=== PATIENT | female | born 1960 | race American Indian/Alaskan Native ===

== ENCOUNTER 2023-10-24 07:47 | Emergency (ER) | payer SELFPAY ==
[2023-10-24 08:42] LABS: HEMATOCRIT 36.2 % (34.2-48.2); HEMOGLOBIN 12.6 g/dL (11.4-15.5); MEAN CORPUSCULAR HEMOGLOBIN 36.1 pg (23.9-33.9); MEAN CORPUSCULAR HGB CONC 34.9 g/dL (31.9-34.8); MEAN CORPUSCULAR VOLUME 103.4 fL (76.7-100.5); MEAN PLATELET VOLUME 8.9 fL (7.1-12.4); PLATELET COUNT,PLT 395 x10(3)uL (151-488); RED CELL DISTRIBUTION WIDTH 15.2 % (12.3-16.5); WHITE BLOOD CELL COUNT,WBC 17.8 x10-3/uL (3.0-10.3)
[2023-10-24 08:54] LABS: A/G RATIO 0.3; ALANINE AMINOTRANSFERASE,ALT 30 U/L (12-36); ALKALINE PHOSPHATASE 249 IU/L (56-112); ASPARTATE AMNIOTRANSFERASE,AST 103 IU/L (5-25); BILIRUBIN TOTAL 10.4 mg/dL (0.1-1.3); BLOOD UREA NITROGEN,BUN 5 mg/dL (7-18); BUN/CREATININE RATIO 8.3 (9-20); CALCIUM 8.1 mg/dL (8.6-10.2); CARBON DIOXIDE,CO2 29 mmol/L (21-32); CHLORIDE,CL 95 mmol/L (100-110); CREATININE 0.6 mg/dL (0.55-1.02); EST CRCL DRUG DOSING (CG) 84.34 mL/min; ESTIMATED GFR 100 mL/min (>60); GLUCOSE RANDOM 126 mg/dL (80-116); MAGNESIUM 2.5 mg/dL (1.8-2.5); PROTEIN TOTAL,TP 7.2 g/dL (6.0-8.0); SODIUM,NA 131 mmol/L (135-145)
[2023-10-24 08:56] LABS: INR 1.42 (1.00-1.24); PROTHROMBIN TIME 14.3 sec (9.0-11.1)
[2023-10-24 08:58] LABS: PTT,PARTIAL THROMBOPLSTIN TIME 31.2 SECONDS (24.4-33.2); TROPONIN I 5.7 pg/mL (4.0-60.3)
[2023-10-24 09:03] LABS: C-REACTIVE PROTEIN 8.49 mg/dL (<0.50); POTASSIUM,K 2.8 mmol/L (3.5-5.3)
[2023-10-24 09:04] LABS: ALBUMIN 1.6 g/dL (3.2-4.6)
[2023-10-24 09:07] LABS: ETHANOL BLOOD MEDICAL 0.03 % (<0.03)
[2023-10-24] MEDS: Sodium Chloride 0.9% 500 ML IV ONE (09:17)
[2023-10-24] MEDS: Potassium Chloride 20 MEQ Tab.ER PO ONE ×2 (09:19→16:00)
[2023-10-24 09:25] LABS: BILIRUBIN,URINE MODERATE (NEGATIVE); GLUCOSE,URINE NORMAL (NORMAL); KETONES,URINE NEGATIVE (NEGATIVE); LEUKOCYTE ESTERASE,URINE MODERATE (NEGATIVE); NITRITE,URINE POSITIVE (NEGATIVE); OCCULT BLOOD,URINE NEGATIVE (NEGATIVE); PROTEIN,URINE 30 mg/dL (NEGATIVE); UROBILINOGEN,URINE 8 mg/dL (NEGATIVE)
[2023-10-24 09:28] LABS: APPEARANCE,URINE CLEAR (CLEAR); COLOR,URINE ORANGE (YELLOW)
[2023-10-24 09:29] LABS: BACTERIA,URINE MANY (NS); RBC,URINE 0-5 (0-5); SQUAMOUS EPITHELIAL CELLS,UR MANY (NS,R,O)
[2023-10-24 09:37] LABS: BAND PERCENT MAN 2 % (0-6); LYMPHOCYTES PERCENT MAN 15 % (13-37); MONOCYTES PERCENT MAN 4 % (4-12); SEG NEUTROPHILS PERCENT MAN 79 % (46-82)
[2023-10-24] MEDS: Iopamidol 755 Mg/ML 100 ML Bottle IV SCH (10:09)
[2023-10-24] MEDS: cefTRIAXone 2 GM Vial IVPUSH ONE (12:49)
[2023-10-24] MEDS: Sodium Chloride 0.9% 10 ML Syringe FLUSH PRN (12:49)
[2023-10-24] MEDS ORDERED: Sodium Chloride 0.9% 1,000 ML IV SCH (15:30)
== END 2023-10-24 16:28 ==
LOC: FB.ED 07:47
DX: N39.0 Urinary tract infection, site not specified (principal); E87.6 Hypokalemia; F10.10 Alcohol abuse, uncomplicated; K83.09 Other cholangitis; K83.1 Obstruction of bile duct; Z88.5 Allergy status to narcotic agent; Z90.49 Acquired absence of other specified parts of digestive tract
CPT/HCPCS: 36415; 74177; 80053; 80307; 81001; 82248; 83605; 83690; 83735; 84484; 85025; 85610; 85730; 86140; 87040; 87086; 87088; 87186; 93005; 93010; 96374; 99284; 99285-25; A9270-GY; J0696; J3490; J7040; Q9967

== ENCOUNTER 2023-11-16 10:19 | Emergency (ER) | payer SELFPAY ==
[2023-11-16] MEDS: Sodium Phosphate,Monobasic/Sodium Phosphate,Dibasic Enema 133 ML Bottle RECTAL ONE (10:58)
[2023-11-16] MEDS: Ketorolac 30 MG/ML SDV IM ONE (11:24)
[2023-11-16] MEDS: Bisacodyl 5 MG Tab PO ONE (11:25)
== END 2023-11-16 12:00 | disposition home or self-care (01) ==
LOC: FB.ED 10:19
DX: K59.00 Constipation, unspecified (principal); Z88.5 Allergy status to narcotic agent; Z79.899 Other long term (current) drug therapy; Z90.49 Acquired absence of other specified parts of digestive tract
CPT/HCPCS: 96372; 99283; A9270; J1885